=== PATIENT | female | born 1955 | race Caucasian/White ===

== ENCOUNTER → 2023-11-13 | Emergency (ER) | payer OTHER ==
[~2023-11-13] MED LIST: ASPIRIN 81 MG CHEWABLE TABLET ONE; ONDANSETRON 4 MG/2 ML VIAL ONE
--- NOTE | 2023-11-13 19:48 | RAD REPORT ---
EXAM DESCRIPTION: RAD - Chest Single View - 11/13/2023 7:40 pm CLINICAL HISTORY: CHEST PAIN COMPARISON: No comparisons FINDINGS: Lines: None. Lungs: Mild ill-defined left basilar airspace disease. Pleural: No significant pleural effusions or pneumothorax. Cardiac: The heart size is within normal limits. Mediastinum: Within normal limits. Bones: No acute fractures. Other: None IMPRESSION: Mild ill-defined left basilar airspace disease could reflect developing pneumonia.
[2023-11-13 20:09] LABS: Absolute Lymphocytes (CBC) 0.6 K/uL (0.7-4.9); Hematocrit 38.9 % (36.0-45.0); Lymphocytes % 18.9 % (15.3-44.8); MCV 93.1 fL (80-100); MPV 6.6 fL (7.6-11.3); Platelets 202 thou/uL (152-406); Protime INR 1.01; RBC Red Blood Cell Count 4.18 M/uL (3.86-4.86)
[2023-11-13 20:25] LABS: Albumin 3.7 g/dL (3.4-5.0); Bilirubin Direct 0.1 mg/dL (0-0.2); Bilirubin Indirect, Calculated 0.3 mg/dL (0.2-0.8); Bilirubin Total 0.4 mg/dL (0.2-1.0); Magnesium 2.1 mg/dL (1.6-2.4); Potassium 3.9 mEq/L (3.5-5.1); Protein, Total 7.4 g/dL (6.4-8.2); Troponin High Sensitivity 7.5 pg/mL (<58.9)
--- NOTE | 2023-11-13 22:01 | RAD REPORT ---
EXAM DESCRIPTION: CT - Chest For Pe Angio - 11/13/2023 9:52 pm CLINICAL HISTORY: CHEST PAIN COMPARISON: No comparisons TECHNIQUE: Dynamically enhanced axial 3 mm thick images of the chest were obtained during administra tion of <100> mL Isovue 370 IV contrast. Coronal and oblique reconstruction images were generated and reviewed. Exam utilizes a protocol for optimal evaluation of pulmonary arterial tree. Maximum intensity projections 3D imaging was utilized All CT scans are performed using dose optimization technique as appropriate and may include automated exposure control or mA/KV adjustment according to patient size. FINDINGS: Chest Wall: No suspicious thyroid nodules or pathologic lymphadenopathy. Lungs: No acute abnormality. Pleura: No significant effusions or pneumothorax. Mediastinum/tatyana: No pathologic lymphadenopathy. Pulmonary arteries/Aorta: No filling defect identified. No aortic aneurysm. Heart: No significant pericardial effusion. Normal heart size. Aortic root calcifications. Upper abdomen: No acute abnormality. Bones: No acute abnormality. IMPRESSION: Negative for pulmonary embolism. No acute findings in the chest.
--- NOTE | 2023-11-13 23:32 | EDPHYS ---
Physician Documentation [facility] Name: Crista Dickerson Age: 68 yrs Sex: Female : 1955 Arrival Date: 11/13/2023 Time: 19:12 Bed 15 Private MD: ED Physician Maykel Kent HPI: 11/13 20:06 This 68 yrs old Female presents to ER via Ambulatory with complaints of Chest Pain, sb4 Vomiting. 20:08 The patient or guardian reports chest pain that is located primarily in the epigastric sb4 area. Onset: today. The pain does not radiate. Associated signs and symptoms: Pertinent positives: cough, diaphoresis, nausea, vomiting. The chest pain is described as a heaviness. The patient has not experienced similar symptoms in the past. Historical: - Allergies: 19:19 No Known Allergies; jb4 - PMHx: 19:19 HTN; breast cancer; Lupus erythematosus; jb4 - PSHx: 19:19 Double Mastectomy; Cholecystectomy; jb4 - Immunization history:: Adult Immunizations up to date. - Social history:: Smoking status: Patient denies any tobacco usage or history of. ROS: 20:08 Constitutional: Negative for fever, chills, and weight loss, sb4 20:08 Cardiovascular: Positive for chest pain, 20:08 Abdomen/GI: Positive for nausea and vomiting, 20:08 All other systems are negative, Exam: 20:08 Constitutional: This is a well developed, well nourished patient who is awake, alert, sb4 and in no acute distress. Head/Face: Normocephalic, atraumatic. Eyes: Extra-ocular motions intact. Periorbital areas with no swelling, redness, or edema. ENT: Mucous membranes moist. Cardiovascular: Regular rate and rhythm with a normal S1 and S2. Respiratory: Lungs have equal breath sounds bilaterally, clear to auscultation and percussion. No rales, rhonchi or wheezes noted. No increased work of breathing, no retractions or nasal flaring. Abdomen/GI: Soft, non-tender, no distension. Skin: Warm, dry with normal turgor. Normal color with no rashes, no lesions, and no evidence of cellulitis. MS/ Extremity: Pulses equal, no cyanosis. Neurovascular intact. Full, normal range of motion. Neuro: Awake and alert, GCS 15, oriented to person, place, time, and situation. Motor strength 5/5 in all extremities. Sensory grossly intact. Vital Signs: 19:16 BP 164 / 90; Pulse 74; Resp 16; Temp 98(O); Pulse Ox 100% on R/A; Weight 63.5 kg (R); jb4 Height 5 ft. 6 in. (R); Pain 8/10; 20:05 BP 139 / 58; Pulse 68; Resp 18; Pulse Ox 98% on R/A; Pain 8/10; pf1 21:00 BP 129 / 59; Pulse 63; Resp 15; Pulse Ox 98% on R/A; pf1 22:00 BP 135 / 58; Pulse 71; Resp 14; Pulse Ox 99% on R/A; pf1 23:00 BP 133 / 58; Pulse 69; Resp 14; Pulse Ox 98% on R/A; pf1 19:16 Body Mass Index 22.60 (63.50 kg, 167.64 cm) jb4 19:16 Pain Scale: Adult jb4 20:05 Pain Scale: Adult pf1 MDM: 19:21 Patient medically screened. sb4 20:08 Differential diagnosis: abnormal EKG, acute myocardial infarction, esophagitis, sb4 gastritis, peptic ulcer disease, pneumonia, stable angina, unstable angina. The patient was given aspirin in the Emergency Department. 11/14 00:12 Data reviewed: vital signs, nurses notes, lab test result(s), EKG, radiologic studies, sb4 and as a result, I will discharge patient. Consideration of Admission/Observation Escalation of care including admission/observation considered. Care significantly affected by the following chronic conditions: Diabetes. Scoring Tools HEART Score: History: ECG: Age: Risk Factors: 1 or 2 risk factors (1), Troponin: Total Score = 4. Counseling: I had a detailed discussion with the patient and/or guardian regarding the historical points, exam findings, and any diagnostic results supporting the discharge/admit diagnosis, the presence of at least one elevated blood pressure reading (>120/80) during this emergency department visit, lab results, radiology results, to return to the emergency department if symptoms worsen or persist or if there are any questions or concerns that arise at home. 11/13 19:21 Order name: Basic Metabolic Panel; Complete Time: 20:30 sb4 11/13 19:21 Order name: CBC with Diff; Complete Time: 20:11 sb4 11/13 19:21 Order name: LFT's; Complete Time: 20:30 sb4 11/13 19:21 Order name: Magnesium; Complete Time: 20:30 sb4 11/13 19:21 Order name: NT PRO-BNP; Complete Time: 20:30 sb4 11/13 19:21 Order name: PT-INR; Complete Time: 20:11 sb4 11/13 19:21 Order name: Troponin HS; Complete Time: 20:30 sb4 11/13 19:29 Order name: TSH; Complete Time: 20:50 sb4 11/13 22:02 Order name: Troponin HS; Complete Time: 22:56 sb4 11/13 19:21 Order name: XRAY Chest (1 view); Complete Time: 19:49 sb4 11/13 20:50 Order name: Chest For PE Angio CT; Complete Time: 22:02 sb4 11/13 19:21 Order name: EKG; Complete Time: 19:22 sb4 11/13 19:21 Order name: Cardiac monitoring; Complete Time: 19:59 sb4 11/13 19:21 Order name: EKG - Nurse/Tech; Complete Time: 19:44 sb4 11/13 19:21 Order name: IV Saline Lock; Complete Time: 19:59 sb4 11/13 19:21 Order name: Labs collected and sent; Complete Time: 19:59 sb4 11/13 19:21 Order name: O2 Per Protocol; Complete Time: 19:59 sb4 11/13 19:21 Order name: O2 Sat Monitoring; Complete Time: 19:59 sb4 11/13 23:08 Order name: PO challenge; Complete Time: 23:43 pf1 EC/28 20:03 Rate is 79 beats/min. Rhythm is regular, Normal Sinus Rhythm. [place] interval is normal at sb4 136 msec. QRS interval is normal at 82 msec. QT interval is normal. No ST changes noted. Clinical impression: Normal ECG and No evidence of ischemia. Interpreted by me. Reviewed by me. Administered Medications: 20:00 Drug: Aspirin PO Chewable Tablet 324 mg PO once; 81 mg tablets x 4 Route: PO; pf1 20:32 Follow up: Response: No adverse reaction; Marked relief of symptoms pf1 20:10 Drug: Ondansetron IVP 4 mg IVP once; over 2 minutes Route: IVP; Site: left antecubital; pf1 20:31 Follow up: Response: No adverse reaction; Marked relief of symptoms pf1 Disposition Summary: 11/13/23 23:32 Discharge Ordered Notes: Location: Home sb4 Problem: new sb4 Symptoms: have improved sb4 Condition: Stable sb4 Diagnosis - Pneumonia, unspecified organism sb4 - Vomiting sb4 Followup: sb4 - With: Emergency Department - When: As needed - Reason: Trouble breathing, Worsening of condition Discharge Instructions: - Discharge Summary Sheet sb4 - Community-Acquired Pneumonia, Adult sb4 Forms: - Medication Reconciliation Form sb4 - Thank You Letter sb4 - Antibiotic Education sb4 - Prescription Opioid Use sb4 - Patient Portal Instructions sb4 - Leadership Thank You Letter sb4 Prescriptions: - azithromycin 250 mg Oral tablet - take 1 dose pack ORAL route as directed on dose pack For 250 mg dose pack: take sb4 500 mg today (day 1), then 250 mg for 4 days (days 2-5); 1 Pack; Refills: 0, Product Selection Permitted - Augmentin 875-125 mg Oral Tablet - take 1 tablet ORAL route every 12 hours for 10 days; 20 tablet; Refills: 0, sb4 Product Selection Permitted - Zofran 4 mg Oral Tablet - take 1 tablet ORAL route every 12 hours As needed; 20 tablet; Refills: 0, sb4 Product Selection Permitted Addendum: 11/15/2023 21:15 I was immediately available for consultation during this patient's visit. I did not e c2 personally see the patient or guide the patient's care. . Signatures: Dispatcher [employer] Bryan Rodriges, RN RN [email or web address] Keyonna Pizarro PA-C PAMaria Teresa sb4 Yoselin Dale RN RN pf1 Maykel Kent MD MD ec2
--- NOTE | 2023-11-13 23:32 | ER ---
Nurse's Notes [facility] Name: Crista Dickerson Age: 68 yrs Sex: Female : 1955 Arrival Date: 11/13/2023 Time: 19:12 Bed 15 Private MD: Diagnosis: Pneumonia, unspecified organism;Vomiting Presentation: 11/13 19:16 Chief complaint: Patient states: I am having chest pain that started around 1pm. I also jb4 started vomiting at that time. The pain is a 8/10, continuous pressure pain like something is sitting on my chest. Coronavirus screen: At this time, the client does not indicate any symptoms associated with coronavirus-19. Ebola Screen: No symptoms or risks identified at this time. Initial Sepsis Screen: Does the patient meet any 2 criteria? No. Patient's initial sepsis screen is negative. Does the patient have a suspected source of infection? No. Patient's initial sepsis screen is negative. Risk Assessment: Do you want to hurt yourself or someone else? Patient reports no desire to harm self or others. Onset of symptoms was November 13, 2023. Transition of care: patient was not received from another setting of care. 19:16 Method Of Arrival: Ambulatory jb4 19:16 Acuity: SHERRELL 3 jb4 Triage Assessment: 19:19 General: Appears in no apparent distress. uncomfortable, Behavior is calm, cooperative, jb4 appropriate for age. Pain: Complains of pain in mid-sternal area Pain does not radiate. Pain currently is 8 out of 10 on a pain scale. Quality of pain is described as pressure, Pain began 1pm. Neuro: Level of Consciousness is awake, alert, obeys commands, Oriented to person, place, time, situation. Cardiovascular: Patient's skin is warm and dry. Historical: - Allergies: 19:19 No Known Allergies; jb4 - PMHx: 19:19 HTN; breast cancer; Lupus erythematosus; jb4 - PSHx: 19:19 Double Mastectomy; Cholecystectomy; jb4 - Immunization history:: Adult Immunizations up to date. - Social history:: Smoking status: Patient denies any tobacco usage or history of. Screenin:50 [facility] ED Fall Risk Assessment (Adult) History of falling in the last 3 months, pf1 including since admission No falls in past 3 months (0 pts) Confusion or Disorientation No (0 pts) Intoxicated or Sedated No (0 pts) Impaired Gait No (0 pts) Mobility Assist Device Used No (0 pt) Altered Elimination No (0 pt) Score/Fall Risk Level 0 - 2 = Low Risk Oriented to surroundings, Maintained a safe environment, Educated pt \T\ family on fall prevention, incl call for assistance when getting out of bed, Assessed \T\ reinforced patient's understanding of fall precautions, Provided non-skid footwear, Hourly rounding (assess needs \T\ fall precautionary measures) done, Used ambulatory aids as needed (educated on \T\ assisted with), Used gait belt as appropriate. Abuse screen: Denies threats or abuse. Nutritional screening: No deficits noted. Tuberculosis screening: No symptoms or risk factors identified. Assessment: 19:31 General: Appears in no apparent distress. comfortable, well groomed, well developed, pf1 Behavior is calm, cooperative, appropriate for age, quiet. 19:31 Pain: Complains of pain in mid-sternal area that radiates to lower throacic region Pain pf1 currently is 8 out of 10 on a pain scale. Pain began onset 1300 after taking hydroxychloroquine then vomiting. Neuro: Level of Consciousness is awake, alert, obeys commands, Oriented to person, place, time, situation, C/O unsteady gait and shaking, onset today.. Cardiovascular: Reports chest pain, Capillary refill < 3 seconds Patient's skin is warm and dry. Respiratory: Airway is patent Respiratory effort is even, unlabored, Respiratory pattern is regular, symmetrical, that radiates to back, lower thoracic region. 20:32 Reassessment: Patient appears in no apparent distress at this time. Patient and/or pf1 family updated on plan of care and expected duration. Pain level reassessed. Patient is alert, oriented x 3, equal unlabored respirations, skin warm/dry/pink. Patient states symptoms have improved. 21:30 Reassessment: Patient appears in no apparent distress at this time. Patient and/or pf1 family updated on plan of care and expected duration. Pain level reassessed. Patient is alert, oriented x 3, equal unlabored respirations, skin warm/dry/pink. Patient states symptoms have improved. 22:36 Reassessment: Patient appears in no apparent distress at this time. Patient and/or pf1 family updated on plan of care and expected duration. Pain level reassessed. Patient is alert, oriented x 3, equal unlabored respirations, skin warm/dry/pink. Patient states symptoms have improved. 23:16 Reassessment: Patient appears in no apparent distress at this time. Patient and/or pf1 family updated on plan of care and expected duration. Pain level reassessed. Patient is alert, oriented x 3, equal unlabored respirations, skin warm/dry/pink. Patient states symptoms have improved. Vital Signs: 19:16 BP 164 / 90; Pulse 74; Resp 16; Temp 98(O); Pulse Ox 100% on R/A; Weight 63.5 kg (R); jb4 Height 5 ft. 6 in. (R); Pain 8/10; 20:05 BP 139 / 58; Pulse 68; Resp 18; Pulse Ox 98% on R/A; Pain 8/10; pf1 21:00 BP 129 / 59; Pulse 63; Resp 15; Pulse Ox 98% on R/A; pf1 22:00 BP 135 / 58; Pulse 71; Resp 14; Pulse Ox 99% on R/A; pf1 23:00 BP 133 / 58; Pulse 69; Resp 14; Pulse Ox 98% on R/A; pf1 19:16 Body Mass Index 22.60 (63.50 kg, 167.64 cm) jb4 19:16 Pain Scale: Adult jb4 20:05 Pain Scale: Adult pf1 ED Course: 19:14 Patient arrived in ED. mr 19:16 Keyonna [facility]izarro [facility]C [facility]. sb4 19:16 Maykel Kent MD is Attending Physician. sb4 19:19 Triage completed. jb4 19:19 Arm band placed on right wrist. jb4 19:30 Client placed on continuous cardiac and pulse oximetry monitoring. NIBP monitoring pf1 applied. time stamp assembler on. 19:30 Patient has correct armband on for positive identification. Placed in gown. Bed in low pf1 position. Call light in reach. 19:30 Patient maintains SpO2 saturation greater than 95% on room air. pf1 19:41 XRAY Chest (1 view) In Process Unspecified. EDMS 19:50 No provider procedures requiring assistance completed. Inserted saline lock: 22 gauge pf1 in left antecubital area, using aseptic technique. Blood collected. 19:59 Basic Metabolic Panel Sent. pf1 19:59 CBC with Diff Sent. pf1 19:59 LFT's Sent. pf1 19:59 Magnesium Sent. pf1 19:59 NT PRO-BNP Sent. pf1 19:59 PT-INR Sent. pf1 21:54 Chest For PE Angio CT In Process Unspecified. EDMS 22:26 Troponin HS Sent. pf1 23:50 Provided Education on: prescriptions . pf1 23:50 IV discontinued, intact, bleeding controlled, No redness/swelling at site. Pressure pf1 dressing applied. Administered Medications: 20:00 Drug: Aspirin PO Chewable Tablet 324 mg PO once; 81 mg tablets x 4 Route: PO; pf1 20:32 Follow up: Response: No adverse reaction; Marked relief of symptoms pf1 20:10 Drug: Ondansetron IVP 4 mg IVP once; over 2 minutes Route: IVP; Site: left antecubital; pf1 20:31 Follow up: Response: No adverse reaction; Marked relief of symptoms pf1 Medication: 23:51 VIS not applicable for this client. pf1 Outcome: 23:32 Discharge ordered by MD. sb4 23:50 Discharged to home ambulatory, with family, pf1 23:50 Condition: improved 23:50 Discharge instructions given to patient, family, Instructed on discharge instructions, follow up and referral plans. Demonstrated understanding of instructions, follow-up care, medications, Prescriptions given X 3, 23:51 Patient left the ED. pf1 Signatures: Dispatcher [employer] EDNE NorbertGiselle, Reg Reg mr Bryan Rivers, RN RN Keyonna Don PAMaria Teresa PAYoselin Perry RN RN pf1 Corrections: (The following items were deleted from the chart) 11/14 02:20 02:19 Client placed on continuous cardiac and pulse oximetry monitoring. NIBP pf1 monitoring applied. time stamp assembler on. pf1
[2023-11-14 04:55] VITALS: TEMP 98; O2SAT 98
[2023-11-14 05:01] VITALS: BP 133/58
--- NOTE | 2023-11-14 15:29 | EKG ---
Test Date: 2023-11-13 Test Time: 19:26:15 Emr Analyst: NAVJOT MEASUREMENT RESULTS: Intervals: Rate: 79 LA: 136 QRSD: 82 QT: 420 QTc: 481 [place]: P: 58 LA: 136 QRS: -5 T: 41 INTERPRETIVE STATEMENTS: Normal sinus rhythm Septal infarct, age undetermined Abnormal ECG Compared to ECG 06/01/1997 22:41:00 Myocardial infarct finding now present Electronically Signed On 11-14-23 15:27:00 NURSE TECHNICIAN by Ismael Neely
== END ==
LOC: ER 19:12
DX: J18.9 Pneumonia, unspecified organism (principal); R11.10 Vomiting, unspecified; I10 Essential (primary) hypertension; Z85.3 Personal history of malignant neoplasm of breast; Z90.13 Acquired absence of bilateral breasts and nipples
CPT/HCPCS: 93005; 85025; 80048; 36415; 83735; 85610; 80076; 84443; 84484 ×2; 83880; 71275; 71045; 96374; 99285; Q9967; J2405